=== PATIENT | male | born 1975 | race Caucasian/White ===

== ENCOUNTER 2019-09-24 07:11 | Emergency (ER) | payer MEDICAID ==
[~2019-09-24] VITALS: Ht 183.5 cm; Wt 106.8 kg
--- NOTE | 2019-09-24 07:34 | NUR ---
Patient is here for med refill due to running out meds, denies sucidial ideation, hx of schizoaffective and PTSD and anxiety.
[2019-09-24] MEDS ORDERED: QUET400T PO ×2 (07:51→08:33)
[2019-09-24] MEDS ORDERED: QUET200T PO ×2 (07:51→08:33)
[2019-09-24] MEDS ORDERED: PALI234D IM (07:51)
[2019-09-24] MEDS ORDERED: quetiapine 100mg tablet PO STA (08:11)
[2019-09-24 09:03] VITALS: BP 123/82
== END 2019-09-24 09:01 | disposition home or self-care (01) ==
LOC: ER 07:12
DX: F20.9 Schizophrenia, unspecified (principal); Z76.0 Encounter for issue of repeat prescription; F17.200 Nicotine dependence, unspecified, uncomplicated
CPT/HCPCS: 99283

== ENCOUNTER 2020-05-14 11:28 | Emergency (ER) | payer MEDICARE, MEDICAID ==
[~2020-05-14] VITALS: Ht 182.9 cm; Wt 113.6 kg
[~2020-05-14 11:28] MED LIST: PALI234D IM; QUET200T PO; QUET400T PO
[2020-05-14 12:36] LABS: BASOPHILS # (AUTO) 0.1 X10'3 (0-0.2); BASOPHILS % (AUTO) 0.7 % (0-1); EOSINOPHILS # (AUTO) 0.2 X10'3 (0-0.9); EOSINOPHILS % (AUTO) 2.4 % (0-6); HEMATOCRIT 44.5 % (42.0-52.0); HEMOGLOBIN 15.6 g/dl (14.0-17.9); LYMPHOCYTES # (AUTO) 1.6 X10'3 (1.1-4.8); LYMPHOCYTES % (AUTO) 22.1 % (21-51); MEAN CORPUSCULAR HEMOGLOBIN 31.5 PG (27.0-31.0); MEAN PLATELET VOLUME 6.5 FL (7.4-10.4); MONOCYTES # (AUTO) 0.4 X10'3 (0-0.9); MONOCYTES % (AUTO) 5.1 % (2-12); NEUTROPHILS # (AUTO) 5.1 X10'3 (1.8-7.7); NEUTROPHILS % (AUTO) 69.7 % (42-75); PLATELET COUNT 267 X10'3 (140-440); RED BLOOD COUNT 4.94 X10'6 (4.70-6.10); RED CELL DISTRIBUTION WIDTH 13.1 % (11.5-14.5); WHITE BLOOD COUNT 7.4 X10'3 (4.5-11.0)
[2020-05-14 12:49] LABS: ALANINE AMINOTRANSFERASE 60 U/L (12-78); ALKALINE PHOSPHATASE 95 IU/L (46-116); ANION GAP 12 (8-16); ASPARTATE AMINO TRANSFERASE 23 U/L (10-37); BILIRUBIN,TOTAL 0.4 MG/DL (0.1-1.0); BLOOD UREA NITROGEN 10 MG/DL (7-18); CALCIUM 9.3 MG/DL (8.5-10.1); CHLORIDE 102 MMOL/L (99-107); CREATININE 1.11 MG/DL (0.60-1.10); GLUCOSE 103 MG/DL (70-104); POTASSIUM 3.9 MMOL/L (3.5-5.1); SODIUM 138 MMOL/L (135-145); TOTAL CARBON DIOXIDE 24.2 MMOL/L (24-32); eGFR 72 ML/MIN
[2020-05-14 12:55] LABS: ETHANOL < 0.010 GM/DL (0.0-0.010)
[2020-05-14] MEDS ORDERED: QUET400T PO (13:11)
[2020-05-14] MEDS: quetiapine 100mg tablet PO SCH (13:36)
--- NOTE | 2020-05-14 13:45 | NUR ---
pt is resting in his room. no issues
[2020-05-14 14:18] LABS: URINE AMPHETAMINE SCREEN NEGATIVE (Neg); URINE BARBITUATE SCREEN NEGATIVE (Neg); URINE BENZODIAZEPINES SCREEN NEGATIVE (Neg); URINE CANNABINOID SCREEN NEGATIVE (Neg); URINE COCAINE SCREEN NEGATIVE (Neg); URINE METHADONE SCREEN NEGATIVE (Neg); URINE OPIATE SCREEN NEGATIVE (Neg); URINE PHENCYCLIDINE SCREEN NEGATIVE (Neg)
--- NOTE | 2020-05-14 15:38 | NUR ---
FAXED PACKET [facility]
--- NOTE | 2020-05-14 16:00 | NUR ---
PT IS RESTING IN HIS ROOM
--- NOTE | 2020-05-14 18:43 | NUR ---
The patient is sitting on his bed eating dinner.
--- NOTE | 2020-05-14 19:09 | NUR ---
The patient is speaking to Fredy from [facility].
--- NOTE | 2020-05-14 20:43 | NUR ---
The patient has had his HS meds, and is now lying on his right side for sleep
[2020-05-14] MEDS ORDERED: quetiapine 100mg tablet PO SCH (21:00)
--- NOTE | 2020-05-14 21:43 | NUR ---
Patient sleeping in supine position
--- NOTE | 2020-05-14 22:50 | NUR ---
Patient asleep on his right side.
--- NOTE | 2020-05-15 00:35 | NUR ---
Patient continues to sleep.
--- NOTE | 2020-05-15 03:11 | NUR ---
The patient is sleeping supine. Respirations are even and unlabored. No s/s of distress.
--- NOTE | 2020-05-15 06:01 | NUR ---
Patient awake after having vitals taken
--- NOTE | 2020-05-15 06:25 | NUR ---
paged [facility] for med recommendations
[2020-05-15] MEDS: quetiapine 100mg tablet PO SCH (06:31)
--- NOTE | 2020-05-15 07:30 | NUR ---
pt is walking around
[2020-05-15] MEDS ORDERED: LORazepam 1 MG tablet PO PRN (08:25)
[2020-05-15] MEDS ORDERED: pantoprazole 40mg Tablet.DR PO SCH (08:30)
--- NOTE | 2020-05-15 08:30 | NUR ---
pt is eating breakfast
--- NOTE | 2020-05-15 09:36 | NUR ---
pt is resting in his bed
--- NOTE | 2020-05-15 10:30 | NUR ---
pt is resting
--- NOTE | 2020-05-15 11:28 | NUR ---
pt states the ativan was very helpful
--- NOTE | 2020-05-15 12:00 | NUR ---
pt is eating lunch.
--- NOTE | 2020-05-15 13:00 | NUR ---
pt was told he is going to [facility]
--- NOTE | 2020-05-15 14:06 | NUR ---
pt is sleeping
[2020-05-15 16:31] VITALS: BP 123/91
[2020-05-16] MEDS ORDERED: pantoprazole 40mg Tablet.DR PO SCH (07:30)
[2020-08-08] MEDS ORDERED: PALIPERIDONE PALMITATE IM SCH (08:00)
== END 2020-05-15 17:34 ==
LOC: ER 11:28
DX: R45.851 Suicidal ideations (principal); F20.9 Schizophrenia, unspecified; Z72.89 Other problems related to lifestyle; Z79.899 Other long term (current) drug therapy
CPT/HCPCS: 36415; 80053; 80305; 80320; 85025; 99285

== ENCOUNTER 2021-10-18 08:45 | Emergency (ER) | payer MEDICARE, MEDICAID ==
[~2021-10-18] VITALS: Ht 182.9 cm; Wt 240.0 kg
[~2021-10-18 08:45] MED LIST changes: -QUET200T PO
[2021-10-18 09:06] VITALS: BP 191/108
[2021-10-18] MEDS ORDERED: paliperidone palmitate 156 mg/ml inj.**IM only IM ONE (09:10)
--- NOTE | 2021-10-18 09:16 | NUR ---
ANDRES RUFFIN NOTIFIED OF HTN, AND TACHYCARDIA. ANDRES TO PLACE MED ORDERS. VERNON REPEAT VITALS AFTER MED ADMINISTRATION, PRIOR TO DC.
[2021-10-18] MEDS ORDERED: QUET200T PO (09:17)
--- NOTE | 2021-10-18 11:39 | NUR ---
Called patient regarding visit today to check in and make sure patient was feeling better per Cal CAMPOS request. Patient stated that he was feeling better and that he felt like his blood pressure and heart rate were better. I asked patient to return for us to re-evaluate patients vital signs. Patient stated that because he felt better he didn't think he needed to, at this time. Patient stated that if he felt worse that he would return.
[2021-10-19] MEDS ORDERED: quetiapine 100mg tablet PO ONE (08:00)
== END 2021-10-18 10:36 | disposition home or self-care (01) ==
LOC: ER 08:46
DX: F20.0 Paranoid schizophrenia (principal); R03.0 Elevated blood-pressure reading, without diagnosis of hypertension; R00.0 Tachycardia, unspecified; Z76.0 Encounter for issue of repeat prescription; Z72.89 Other problems related to lifestyle; Z79.899 Other long term (current) drug therapy
CPT/HCPCS: 96372; 99283

== ENCOUNTER 2021-11-15 08:51 | Emergency (ER) | payer MEDICARE, MEDICAID ==
[~2021-11-15] VITALS: Ht 182.9 cm; Wt 109.1 kg
[2021-11-15 08:51] VITALS: BP 148/105
[~2021-11-15 08:51] MED LIST changes: +QUET200T PO
[2021-11-15] MEDS ORDERED: paliperidone palmitate 156 mg/ml inj.**IM only IM ONE (09:00)
[2021-11-15] MEDS ORDERED: QUET200T PO (09:16)
[2021-11-15] MEDS ORDERED: QUET400T54 PO (09:47)
== END 2021-11-15 10:22 | disposition home or self-care (01) ==
LOC: ER 08:52
DX: F20.0 Paranoid schizophrenia (principal); Z72.89 Other problems related to lifestyle; Z79.899 Other long term (current) drug therapy
CPT/HCPCS: 96372; 99283

== ENCOUNTER 2022-03-20 22:14 | Emergency (ER) | payer MEDICARE, MEDICAID ==
[~2022-03-20] VITALS: Ht 182.9 cm; Wt 108.6 kg
[~2022-03-20 22:14] MED LIST changes: +QUET400T54 PO
[2022-03-20 22:15] VITALS: BP 96/67
[2022-03-20 22:45] LABS: BASOPHILS # (AUTO) 0.1 X10'3 (0-0.2); BASOPHILS % (AUTO) 0.5 % (0-1); EOSINOPHILS # (AUTO) 0.3 X10'3 (0-0.9); EOSINOPHILS % (AUTO) 2.4 % (0-6); HEMATOCRIT 42.9 % (42.0-52.0); HEMOGLOBIN 14.9 g/dl (14.0-17.9); LYMPHOCYTES # (AUTO) 1.7 X10'3 (1.1-4.8); LYMPHOCYTES % (AUTO) 15.5 % (21-51); MEAN CORPUSCULAR HEMOGLOBIN 30.6 PG (27.0-31.0); MEAN CORPUSCULAR HGB CONC 34.7 g/dL (33.0-36.5); MEAN PLATELET VOLUME 6.6 FL (7.4-10.4); MONOCYTES % (AUTO) 9.1 % (2-12); NEUTROPHILS # (AUTO) 8.1 X10'3 (1.8-7.7); NEUTROPHILS % (AUTO) 72.5 % (42-75); PLATELET COUNT 225 X10'3 (140-440); RED BLOOD COUNT 4.88 X10'6 (4.70-6.10); RED CELL DISTRIBUTION WIDTH 13.5 % (11.5-14.5); WHITE BLOOD COUNT 11.1 X10'3 (4.5-11.0)
[2022-03-20 23:02] LABS: ALANINE AMINOTRANSFERASE 21 U/L (12-78); ALBUMIN 3.6 G/DL (3.4-5.0); ALBUMIN/GLOBULIN RATIO 0.9 (1.1-1.5); ALKALINE PHOSPHATASE 78 IU/L (46-116); ANION GAP 10 (8-16); ASPARTATE AMINO TRANSFERASE 9 U/L (10-37); BILIRUBIN,TOTAL 0.7 MG/DL (0.1-1.0); BLOOD UREA NITROGEN 10 MG/DL (7-18); BUN/CREATININE RATIO 9.3 (5.4-32.0); CALCIUM 9.5 MG/DL (8.5-10.1); CHLORIDE 104 MMOL/L (99-107); CREATININE 1.08 MG/DL (0.60-1.10); GLUCOSE 142 MG/DL (70-104); POTASSIUM 3.4 MMOL/L (3.5-5.1); SODIUM 138 MMOL/L (135-145); TOTAL CARBON DIOXIDE 23.6 MMOL/L (24-32); TOTAL PROTEIN 7.5 G/DL (6.4-8.2); eGFR 74 ML/MIN
[2022-03-20] MEDS ORDERED: AZIT-83 PO (23:57)
[2022-03-20] MEDS ORDERED: ALBU8.5H17 INH (23:57)
[2022-03-20] MEDS ORDERED: PRED20TA PO (23:57)
[2022-03-21 00:32] LABS: CLARITY,URINE SLIGHTLY CLOUDY (Clear); GLUCOSE, URINE NEGATIVE (Neg); KETONES,URINE TRACE mg/dl (Neg); LEUKOCYTE ESTERASE ,URINE NEGATIVE (Neg); NITRITES, URINE NEGATIVE (Neg); OCCULT BLOOD,URINE MODERATE (Neg); PROTEIN,URINE 30 mg/dl (Neg); UROBILINOGEN,URINE 0.2 E.U/dL (0.2-1.0)
[2022-03-21 00:42] LABS: URINE AMPHETAMINE SCREEN NEGATIVE (Neg); URINE BARBITUATE SCREEN NEGATIVE (Neg); URINE BENZODIAZEPINES SCREEN NEGATIVE (Neg); URINE CANNABINOID SCREEN NEGATIVE (Neg); URINE COCAINE SCREEN NEGATIVE (Neg); URINE METHADONE SCREEN NEGATIVE (Neg); URINE OPIATE SCREEN NEGATIVE (Neg); URINE PHENCYCLIDINE SCREEN NEGATIVE (Neg)
[2022-03-21 00:50] LABS: UA COLLECTION TYPE NON-SPECIFIED
[2022-03-21 00:51] LABS: COLOR,URINE Dark Yellow (Yellow)
[2022-03-21 00:52] LABS: BACTERIA,URINE FEW /HPF (Neg); RBC,URINE 0-2 /HPF (0-2); SQUAMOUS EPITHELIAL CELL,UR FEW /LPF (FEW); WBC,URINE 0-4 /HPF (0-4)
--- NOTE | 2022-03-21 00:52 | NUR ---
CALLED [facility] TO GET PT HOME ETA 10MIN
[2022-03-21 00:53] LABS: CAL OXALATE CRYSTALS 4+ /HPF (NEGATIVE); MUCUS STRANDS MODERATE /LPF (Neg)
== END 2022-03-21 01:02 | disposition home or self-care (01) ==
LOC: ER 22:14
DX: J44.1 Chronic obstructive pulmonary disease with (acute) exacerbation (principal); Z20.822 Contact with and (suspected) exposure to COVID-19; R06.02 Shortness of breath; R00.0 Tachycardia, unspecified; F20.9 Schizophrenia, unspecified; Z72.0 Tobacco use; Z72.89 Other problems related to lifestyle; Z79.2 Long term (current) use of antibiotics; Z79.899 Other long term (current) drug therapy
CPT/HCPCS: 71045; 80053; 80305; 81001; 83605; 83880; 84484; 85025; 87502; 87503; 87635; 93005; 99285; C9803

== ENCOUNTER 2022-07-14 12:03 | Emergency (ER) | payer MEDICARE, MEDICAID ==
[~2022-07-14] VITALS: Ht 182.9 cm; Wt 96.0 kg
[~2022-07-14 12:03] MED LIST changes: +ALBU8.5H17 INH
[2022-07-14 12:15] VITALS: BP 130/88
[2022-07-14] MEDS ORDERED: paliperidone palmitate 156 mg/ml inj.**IM only IM ONE (14:55)
[2022-07-14] MEDS ORDERED: QUET200T PO (15:14)
== END 2022-07-14 15:39 | disposition home or self-care (01) ==
LOC: ER 12:04
DX: F20.9 Schizophrenia, unspecified (principal); Z76.0 Encounter for issue of repeat prescription; F17.200 Nicotine dependence, unspecified, uncomplicated; Z79.899 Other long term (current) drug therapy; Z79.2 Long term (current) use of antibiotics
CPT/HCPCS: 96372; 99283

== ENCOUNTER 2023-10-07 06:26 | Emergency (ER) | payer MEDICARE, MEDICAID ==
[~2023-10-07] VITALS: Ht 182.9 cm; Wt 110.8 kg
[2023-10-07 06:35] VITALS: TEMP 98.4
[2023-10-07 07:26] LABS: BASOPHILS # (AUTO) 0.1 X10'3 (0-0.2); BASOPHILS % (AUTO) 0.7 % (0-1); EOSINOPHILS # (AUTO) 0.1 X10'3 (0-0.9); EOSINOPHILS % (AUTO) 0.8 % (0-6); HEMATOCRIT 47.6 % (42.0-52.0); HEMOGLOBIN 16.5 g/dl (14.0-17.9); LYMPHOCYTES # (AUTO) 1.9 X10'3 (1.1-4.8); LYMPHOCYTES % (AUTO) 17.4 % (21-51); MEAN CORPUSCULAR HEMOGLOBIN 30.9 PG (27.0-31.0); MEAN CORPUSCULAR HGB CONC 34.7 g/dL (33.0-36.5); MEAN PLATELET VOLUME 6.9 FL (7.4-10.4); MONOCYTES # (AUTO) 0.9 X10'3 (0-0.9); NEUTROPHILS # (AUTO) 8.1 X10'3 (1.8-7.7); NEUTROPHILS % (AUTO) 73.1 % (42-75); PLATELET COUNT 219 X10'3 (140-440); RED BLOOD COUNT 5.35 X10'6 (4.70-6.10); RED CELL DISTRIBUTION WIDTH 13.4 % (11.5-14.5)
[2023-10-07 07:36] LABS: ALANINE AMINOTRANSFERASE 35 U/L (12-78); ALBUMIN 4.4 G/DL (3.4-5.0); ALBUMIN/GLOBULIN RATIO 1.2 (1.1-1.5); ALKALINE PHOSPHATASE 110 IU/L (46-116); ANION GAP 13 (8-16); ASPARTATE AMINO TRANSFERASE 36 U/L (10-37); BILIRUBIN,TOTAL 0.6 MG/DL (0.1-1.0); BLOOD UREA NITROGEN 10 MG/DL (7-18); BUN/CREATININE RATIO 10.2 (10.0-20.0); CALCIUM 9.2 MG/DL (8.5-10.1); CHLORIDE 102 MMOL/L (99-107); CREATININE 0.98 MG/DL (0.60-1.10); GLUCOSE 114 MG/DL (70-104); SODIUM 139 MMOL/L (135-145); TOTAL CARBON DIOXIDE 24.2 MMOL/L (24-32); eCRCL 102 ML/MIN; eGFR 82 ML/MIN
[2023-10-07 07:43] LABS: PRO BRAIN NATRIURETIC PEPTIDE 30 PG/ML (0-125)
[2023-10-07] MEDS ORDERED: normal saline 500ml IV soln 500 ML IV ONE (10:50)
[2023-10-07] MEDS ORDERED: hydrOXYzine 25 MG tablet PO ONE (10:50)
[2023-10-07] MEDS ORDERED: cloNIDine 0.1 mg tablet PO ONE (10:50)
[2023-10-07] MEDS ORDERED: labetalol 20mg/4ml (5mg/ml) syringe IV ONE (12:00)
[2023-10-07 12:51] LABS: D-DIMER 0.37 MG/L FEU (0-0.50)
[2023-10-07 14:44] LABS: URINE AMPHETAMINE SCREEN NEGATIVE (Neg); URINE BARBITUATE SCREEN NEGATIVE (Neg); URINE BENZODIAZEPINES SCREEN NEGATIVE (Neg); URINE CANNABINOID SCREEN NEGATIVE (Neg); URINE COCAINE SCREEN NEGATIVE (Neg); URINE METHADONE SCREEN NEGATIVE (Neg); URINE OPIATE SCREEN NEGATIVE (Neg); URINE PHENCYCLIDINE SCREEN NEGATIVE (Neg)
[2023-10-07 14:57] VITALS: BP 129/93; PULSE 91; RESP 18; O2SAT 93
[2023-10-07] MEDS ORDERED: iohexol 350MG/ML 100ml bottle IV ONE (15:27)
[2023-10-07] MEDS ORDERED: LORazepam 1 MG tablet PO ONE (15:45)
== END 2023-10-07 16:07 | disposition home or self-care (01) ==
LOC: ER 06:27
DX: R45.1 Restlessness and agitation (principal); R55 Syncope and collapse; R53.1 Weakness; I10 Essential (primary) hypertension; F41.9 Anxiety disorder, unspecified; R07.89 Other chest pain; Z72.89 Other problems related to lifestyle; Z88.8 Allergy status to other drugs, medicaments and biological substances; Z79.899 Other long term (current) drug therapy
CPT/HCPCS: 36415; 80053; 80305; 83880; 84484; 85025; 85379; 93005; 96374; 99291; J3490; J7030; J7040; Q0177; 99285; Q9967

== ENCOUNTER 2025-03-31 07:08 | Emergency (ER) | payer MEDICAID, MEDICARE ==
[~2025-03-31] VITALS: Ht 182.9 cm; Wt 96.4 kg
[2025-03-31 08:16] LABS: LEUKOCYTE ESTERASE ,URINE NEGATIVE (Neg); NITRITES, URINE NEGATIVE (Neg); OCCULT BLOOD,URINE NEGATIVE (Neg)
--- NOTE | 2025-03-31 08:16 | Physician Documentation ---
History of Present Illness ~ Chief Complaint: Mental Health Eval Stated Complaint: MENTAL HEALTH ISSUES Time Seen by MD: 07:46 Primary Medical Doctor: no primary physician Mode of Arrival: Ambulatory HPI This is a pleasant 50-year-old gentleman with a known history of schizophrenia who presents with a request to see mental health. He states that he is running out of his medication. He does not have a mental health professional here. He has no health insurance. He recently, six months ago, moved here to take care of his mother was dementia. Prior to that he was receiving medications prescribed by a physician in [place]. He is not suicidal, has not homicidal, he is not responding to internal stimuli. He denies any somatic complaints. Medication Reconciliation Allergies: Coded Allergies: divalproex sodium (Unverified Allergy, Unknown, 03/31/25) lurasidone (Unverified Allergy, Unknown, 10/07/23) Scheduled Paliperidone Palmitate (Invega Sustenna), 860 MG IM Q90D, (Reported) Quetiapine Fumarate (Seroquel), 1 TAB PO QAM, (Reported) Quetiapine Fumarate (Seroquel), 400 MG PO HS, (Reported) Quetiapine Fumarate (Quetiapine Fumarate ER), 1 TAB PO HS Quetiapine Fumarate (Seroquel), 1 TAB PO TID Quetiapine Fumarate (Quetiapine Fumarate), 2 TAB PO BID Scheduled PRN Albuterol Sulfate (Proair Hfa), 2 PUFFS INH Q4HPRN PRN for wheezing Past Medical History Past Medical History: Schizophrenia Past Surgical History: no surgical history Alcohol Use: Occasionally Drug Use: none Lives with: Other Lives In: Home Occupation: other Review of Systems ROS 10 point review of systems was performed and unless noted above in HPI is negative for acute process/complaint. Physical Exam Vital Signs: Temperature: 97.2, Source: Temporal, Heart Rate: 94, Respiratory Rate: 16, BP: 157/104, Pulse Oximetry: 96, Weight: 96.400 Physical Exam Physical examination: GENERAL: Awake, alert, oriented, GCS 15, no apparent distress, non-toxic appearing, answers questions, follows commands appropriately. Examined in bed 14. HEENT: Atraumatic, normocephalic, pupils equal, extraocular muscles intact Active gross movements, sclerae anicteric, mucus membranes moist, no stridor. NECK: Midline, no JVD CARDIOVASCULAR: Good skin perfusion without evidence of pallor, mottling. PULMONARY: Nonlabored, symmetric chest rise, no audible wheezing, no accessory muscle use, no respiratory distress, speaking in full sentences. GASTROINTESTINAL: Not distended. NEUROLOGIC: Lucid with normal mental status. Normal facial symmetry. Moves all extremities symmetrically and with purpose. No truncal ataxia. Speech is fluid without evidence of dysarthria or aphasia, no focal deficits appreciated. EXTREMITIES: Acute deformities Skin: warm, dry PSYCHIATRIC: Normal affect, normal insight, normal concentration. Focused exam: [] Does not respond to internal stimuli, not suicidal, not homicidal Progress Results/Orders Results/Orders Orders - SHARDA GASTELUM DO Med Rec (03/31/25 07:46) Close Observation Level (03/31/25 07:46) Covid19 Binax Poc Result Entry (03/31/25 07:46) Regular Diet (03/31/25 Lunch) Waist Fitter (03/31/25 09:03) Completed Orders - SHARDA GASTELUM DO Cbc/Diff (03/31/25 07:46) Urinalysis (03/31/25 07:46) Drug Screen, Urine (03/31/25 07:46) Ethanol (03/31/25 07:46) TSH (03/31/25 07:46) BMP (03/31/25 07:46) Vital Signs 03/31/25 03/31/25 07:11 07:54 Temp 97.2 Pulse 94 Resp 16 B/P (MAP) 157/104 Pulse Ox 96 Laboratory Tests Test 03/31/25 07:55 03/31/25 08:03 Urine Specimen Description Non-specified Urine Color Straw Urine Clarity Clear Urine pH 6.0 Urine Specific [place] 1.010 Urine Protein Negative Urine Glucose (UA) Negative Urine Ketones Negative Urine Occult Blood Negative Urine Nitrite Negative Urine Bilirubin Negative Urine Urobilinogen 0.2 Urine Leukocyte Esterase Negative Volume Urine Centrifuged 10 ml Urine Comment Urine Opiates Screen Negative Urine Methadone Screen Negative Urine Fentanyl Screen Negative Urine Barbiturates Screen Negative Urine Phencyclidine Screen Negative Urine Amphetamines Screen Negative Urine Benzodiazepines Screen Negative Urine Cocaine Screen Negative Urine Cannabinoids Screen Negative Drug Screen Comment SARS-CoV-2 Antigen (Rapid) Negative White Blood Count 8.0 Red Blood Count 5.16 Hemoglobin 15.8 Hematocrit 45.3 Mean Corpuscular Volume 87.9 Mean Corpuscular Hemoglobin 30.6 Mean Corpuscular Hemoglobin Concent 34.8 Red Cell Distribution Width 13.6 Platelet Count 220 Mean Platelet Volume 6.9 L Neutrophils (%) (Auto) 60.2 Lymphocytes (%) (Auto) 26.3 Monocytes (%) (Auto) 7.9 Eosinophils (%) (Auto) 4.8 Basophils (%) (Auto) 0.8 Neutrophils # (Auto) 4.8 Lymphocytes # (Auto) 2.1 Monocytes # (Auto) 0.6 Eosinophils # (Auto) 0.4 Basophils # (Auto) 0.1 CBC Comment Sodium Level 136 Potassium Level 4.5 Chloride Level 103 Carbon Dioxide Level 23.5 L Anion Gap 10 Blood Urea Nitrogen 15 Creatinine 1.05 Estimated GFR/1.73 m2 75 BUN/Creatinine Ratio 14.3 Glucose Level 173 H Calcium Level 9.2 Albumin 3.6 Thyroid Stimulating Hormone (TSH) 1.27 Chemistry Comments Ethyl Alcohol Level < 10 Medical Decision Making Findings Facility Status: ED Holds, [facility] process The plan was discussed with the patient, who demonstrates clear understanding of the plan and is in agreement with the plan unless otherwise noted in the chart. All questions have been answered, all concerns were addressed unless otherwise documented. I was available throughout their ED stay for frequent reassessment and questions. Differential Diagnoses (considered and possible or likely): [Encounter for medication refill, need for psychiatric care, unlikely to represent decompensation of his schizoaffective disorder, unlikely to represent danger to self, grave disability, homicidal ideation] ??Differential Diagnoses (considered and unlikely, not requiring evaluation currently): [Denies any somatic complaints] MDM Data Please see HPI for the following: Independent Historians and external Records Review. Historian: [Patient] Independent Historians: ?[Record review] Medication Management: [Reviewed medication list] Social History and determinants: [Reviewed] Please see the body of the note for the following: Any independent interpretations of ECG, imaging studies. All vitals signs/haemodynamics, ordered tests were independently reviewed and interpreted by myself. Nursing triage complaint and vitals reviewed, additional nursing notes were r eviewed as available and I agree unless otherwise noted or documented in contradiction in the chart Vital Signs: Independently reviewed Labs: Independently interpreted Imaging: Independently interpreted Old Medical Records: Independently reviewed, see HPI for relevant summary and information Pulse Oximetry: [99%] interpreted as [normal on room air] by me Additionally notably showing: [Hemodynamically stable. Unremarkable workup. Normal CBC, normal metabolic panel, drug screen is negative.] Tests considered but not ordered include: [Imaging does not appear to be necessary] Social Determinants of Health Impact: Patient was evaluated in [facility], or [facility] [place] access to healthcare due to below par ratio of patient to medical providers. [] Comorbid Conditions Impacting Present Evaluation and Care/Treatment: [Schizophrenia] Management Discussions with other Healthcare Providers: [Mental health resources and home health care social worker] Treatment and Disposition Medication Management (Given or considered): []. See EMR for details Consideration for Hospitalization/Escalation/Deescalation of Care: Admission for observation has been considered, [however the patient is able to tolerate p.o., their symptoms are controlled, they are able to rely on oral medications, and their chief complaint/diagnosis can be managed on outpatient basis.] ?ED Course:?[Prescription for Seroquel was sent. The gentleman prefers to be discharged and follow-up on home health care social worker on outpatient basis.] ?Shared decision making:?[Patient is hemodynamically stable for discharge home with follow with their primary care provider. [ ] Specific and cautious return precautions provided and discussed with full understanding. Any incidental findings were also discussed and follow up recommendations given. [] All questions answered. Patient/family were able to verbalize back return preca utions. Patient/family agree to plan. Copies of imaging and laboratory studies were provided.] Code status:?FULL Please see the full Electronic Medical Record for full details of nursing documentation, medications list, other records of complete past medical history and conditions, vital signs, laboratory studies, and any radiologic study interpretations by radiologists. Portions of this note were completed using [employer] dictation software and as a result there may exist minor errors in spelling. I have reviewed elements of past family and social history and agree as included in note. Departure Disposition: 01 HOME / SELF CARE / HOMELESS Impression: Primary Impression: Encounter for medication refill Condition: Improved Discharge Instructions: Medical Screening Exam Referrals: NO PRIMARY CARE PROVIDER (PCP) Prescriptions Quetiapine Fumarate (QUETIAPINE FUMARATE) 200 Mg Tablet 2 TAB PO BID for 30 Days, #120 TAB 0 Refills Prov: SHARDA GASTELUM DO 03/31/25 Education Educated: Patient Educated regarding: diagnosis, treatment, prognosis, need for follow up Signature Scribe Signature: No scribe Attestation: This note accurately reflects clinical decisions, work performed by myself, DO ORIANA Buckner NICHOLAS M DO Mar 31, 2025 08:16
[2025-03-31 08:18] LABS: MEAN PLATELET VOLUME 6.9 FL (7.4-10.4); RED CELL DISTRIBUTION WIDTH 13.6 % (11.5-14.5)
[2025-03-31 08:22] LABS: UA COLLECTION TYPE NON-SPECIFIED
[2025-03-31 08:29] LABS: URINE AMPHETAMINE SCREEN NEGATIVE (Neg); URINE BARBITUATE SCREEN NEGATIVE (Neg); URINE BENZODIAZEPINES SCREEN NEGATIVE (Neg); URINE CANNABINOID SCREEN NEGATIVE (Neg); URINE COCAINE SCREEN NEGATIVE (Neg); URINE METHADONE SCREEN NEGATIVE (Neg); URINE OPIATE SCREEN NEGATIVE (Neg); URINE PHENCYCLIDINE SCREEN NEGATIVE (Neg)
[2025-03-31 08:42] LABS: CREATININE 1.05 MG/DL (0.60-1.10); ETHANOL < 10 MG/DL (<10); TOTAL CARBON DIOXIDE 23.5 MMOL/L (24-32); eCRCL 93 ML/MIN; eGFR 75 ML/MIN
[2025-03-31] MEDS ORDERED: QUET200T31 PO (10:22)
[2025-03-31 11:07] VITALS: BP 157/104; PULSE 94; RESP 16; TEMP 97.2; O2SAT 96
== END 2025-03-31 11:10 | disposition home or self-care (01) ==
LOC: ER 07:09
DX: Z00.8 Encounter for other general examination (principal); Z76.0 Encounter for issue of repeat prescription; F20.9 Schizophrenia, unspecified; Z20.822 Contact with and (suspected) exposure to COVID-19; Z79.899 Other long term (current) drug therapy
CPT/HCPCS: 36415; 80048; 80305; 80320; 81003; 84443; 85025; 87811; 99283

== ENCOUNTER 2025-05-01 07:17 | Emergency (ER) | payer MEDICAID ==
[~2025-05-01] VITALS: Ht 195.6 cm; Wt 110.5 kg
[~2025-05-01 07:17] MED LIST changes: +QUET200T31 PO
[2025-05-01 07:27] VITALS: TEMP 97.6
[2025-05-01] MEDS ORDERED: PALI6TAB PO (07:40)
--- NOTE | 2025-05-01 07:43 | Physician Documentation ---
HPI ~ General Chief Complaint: Medication Request Stated Complaint: MED REQ Time Seen by MD: 07:37 Primary Medical Doctor: no primary physician History of Present Illness HPI Comments This is a 50-year-old gentleman with a known history of schizophrenia presents with a request for medication refill. I have seen him last month and prescribe him Seroquel 200 mg two tabs b.i.d.. This time he is almost out and he requires refill. He also requests refill for paliperidone. He denies any other symptoms. No concern for tobacco, alcohol or illicit substances use Medication Reconciliation Allergies: Coded Allergies: divalproex sodium (Unverified Allergy, Unknown, 05/01/25) lurasidone (Unverified Allergy, Unknown, 05/01/25) Scheduled Paliperidone Palmitate (Invega Sustenna), 860 MG IM Q90D, (Reported) Quetiapine Fumarate (Seroquel), 1 TAB PO QAM, (Reported) Quetiapine Fumarate (Seroquel), 400 MG PO HS, (Reported) Quetiapine Fumarate (Quetiapine Fumarate ER), 1 TAB PO HS Quetiapine Fumarate (Seroquel), 1 TAB PO TID Quetiapine Fumarate (Quetiapine Fumarate), 2 TAB PO BID Scheduled PRN Albuterol Sulfate (Proair Hfa), 2 PUFFS INH Q4HPRN PRN for wheezing Past Medical History Past Medical History: Schizophrenia Past Surgical History: no surgical history Alcohol Use: Occasionally Drug Use: none Lives with: Other Lives In: Home Occupation: other Review of Systems ROS 10 point review of systems was performed and unless noted above in HPI is negative for acute process/complaint. Physical Exam Physical Exam Vital Signs: Temperature: 97.6, Source: Temporal, Heart Rate: 89, Respiratory Rate: 18, BP: 166/117, Pulse Oximetry: 98, Weight: 110.450 Physical Exam Physical examination: GENERAL: Awake, alert, oriented, GCS 15, no apparent distress, non-toxic appearing, answers questions, follows commands appropriately. Examined in bed 19. HEENT: Atraumatic, normocephalic, pupils equal, extraocular muscles intact Active gross movements, sclerae anicteric, mucus membranes moist, no stridor. NECK: Midline, no JVD CARDIOVASCULAR: Good skin perfusion without evidence of pallor, mottling. PULMONARY: Nonlabored, symmetric chest rise, no audible wheezing, no accessory muscle use, no respiratory distress, speaking in full sentences. GASTROINTESTINAL: Not distended. NEUROLOGIC: Lucid with normal mental status. Normal facial symmetry. Moves all extremities symmetrically and with purpose. No truncal ataxia. Speech is fluid without evidence of dysarthria or aphasia, no focal deficits appreciated. EXTREMITIES: Acute deformities Skin: warm, dry PSYCHIATRIC: Normal affect, normal insight, normal concentration. Focused exam: [] Progress Results/Orders Results/Orders Vital Signs 05/01/25 07:27 Temp 97.6 Pulse 89 Resp 18 B/P (MAP) 166/117 Pulse Ox 98 Medical Decision Making Findings Facility Status: ED Holds, [facility] process The plan was discussed with the patient, who demonstrates clear understanding of the plan and is in agreement with the plan unless otherwise noted in the chart. All questions have been answered, all concerns were addressed unless otherwise documented. I was available throughout their ED stay for frequent reassessment and qu estions. Differential Diagnoses (considered and possible or likely): [Medication refill, stable schizophrenia, unlikely to represent medication noncompliance, psychotic break] ??Differential Diagnoses (considered and unlikely, not requiring evaluation currently): [Denies any other symptoms] MDM Data Please see HPI for the following: Independent Historians and external Records Review. Historian: [Patient] Independent Historians: ?[Record review] Medication Management: [Reviewed medication list] Social History and determinants: [Reviewed] Please see the body of the note for the following: Any independent interpretations of ECG, imaging studies. All vitals signs/haemodynamics, ordered tests were independently reviewed and interpreted by myself. Nursing triage complaint and vitals reviewed, additional nursing notes were reviewed as available and I agree unless otherwise noted or documented in contradiction in the chart Vital Signs: Independently reviewed Labs: Independently interpreted Imaging: Independently interpreted Old Medical Records: Independently reviewed, see HPI for relevant summary and information Pulse Oximetry: [100%] interpreted as [normal on room air] by me Additionally notably showing: [Hemodynamically stable] Tests considered but not ordered include: [Hematologic workup and imaging has been considered but does not appear to be necessary given clinical nature of diagnosis] Social Determinants of Health Impact: Patient was evaluated in [facility], [facility] [place] access to healthcare due to below par ratio of patient to medical providers. [] Comorbid Conditions Impacting Present Evaluation and Care/Treatment: [Schizophrenia] Management Discussions with other Healthcare Providers: [None] Treatment and Disposition Medication Management (Given or considered): []. See EMR for details Consideration for Hospitalization/Escalation/Deescalation of Care: Admission for observation has been considered, [however the patient is able to tolerate p.o., their symptoms are controlled, they are able to rely on oral medications, and their chief complaint/diagnosis can be managed on outpatient basis.] ?ED Course:?[Medication refill was sent. No clinical deterioration during the emergency department stay. Pleasant and cooperative.] ?Shared decision making:?[Patient is hemodynamically stable for discharge home with follow with their primary care provider. [ ] Specific and cautious return precautions provided and discussed with full understanding. Any incidental findings were also discussed and follow up recommendations given. [] All questions answered. Patient/family were able to verbalize back return precautions. Patient/family agree to plan. Copies of imaging and laboratory studies were provided.] Code status:?FULL Please see the full Electronic Medical Record for full details of nursing documentation, medications list, other records of complete past medical history and conditions, vital signs, laboratory studies, and any radiologic study interpretations by radiologists. Portions of this note were completed using [employer] dictation software and as a result there may exist minor errors in spelling. I have reviewed elements of past family and social history and agree as included in note. Departure Disposition: HOME / SELF CARE / HOMELESS Impression: Primary Impression: Encounter for medication refill Condition: Stable Discharge Instructions: Medicine Refill at the Emergency Department Referrals: NO PRIMARY CARE PROVIDER (PCP) Prescriptions Paliperidone (Invega) 6 Mg Tab.er.24 1 TAB PO QAM for 30 Days, #30 TAB 0 Refills Prov: SHARDA GASTELUM DO 05/01/25 Quetiapine Fumarate (QUETIAPINE FUMARATE) 200 Mg Tablet 2 TAB PO BID for 30 Days, #120 TAB 0 Refills Prov: SHARDA GASTELUM DO 05/01/25 Education Educated: Patient Educated regarding: diagnosis, treatment, prognosis, need for follow up Signature Scribe Signature: No scribe Attestation: This note accurately reflects clinical decisions, work performed by myself, DO ORIANA Buckner NICHOLAS M DO May 01, 2025 07:43
[2025-05-01 07:49] VITALS: BP 166/117; PULSE 89; RESP 18; O2SAT 98
== END 2025-05-01 07:51 | disposition home or self-care (01) ==
LOC: ER 07:17
DX: Z00.8 Encounter for other general examination (principal); Z76.0 Encounter for issue of repeat prescription; F20.9 Schizophrenia, unspecified
CPT/HCPCS: 99281

== ENCOUNTER 2025-05-23 08:37 | Emergency (ER) | payer MEDICARE, MEDICAID ==
[~2025-05-23] VITALS: Ht 182.9 cm; Wt 115.5 kg
[~2025-05-23 08:37] MED LIST changes: +PALI6TAB PO
[2025-05-23 08:42] VITALS: TEMP 96.7
[2025-05-23] MEDS ORDERED: PROP40TA72 PO (09:13)
[2025-05-23] MEDS ORDERED: QUET-1 PO (09:13)
--- NOTE | 2025-05-23 09:13 | Physician Documentation ---
HPI ~ General Chief Complaint: Medication Request Stated Complaint: MED REQUEST Time Seen by MD: 09:03 Primary Medical Doctor: in the process - newly with medical (awaiting partnership) History of Present Illness HPI Comments 50-year-old male presents to the ED requesting medication refills on both Seroquel and propranolol. Patient states he takes 400 mg of Seroquel twice daily and 40 mg of propranolol twice daily. Denies any other medical complaints. Medication Reconciliation Allergies: Coded Allergies: divalproex sodium (Unverified Allergy, Unknown, 05/23/25) lurasidone (Unverified Allergy, Unknown, 05/23/25) Scheduled Paliperidone (Invega), 1 TAB PO QAM Paliperidone Palmitate (Invega Sustenna), 860 MG IM Q90D, (Reported) Propranolol Hcl* (Inderal*), 1 TAB PO Q12H Quetiapine Fumarate (Seroquel), 1 TAB PO QAM, (Reported) Quetiapine Fumarate (Seroquel), 400 MG PO HS, (Reported) Quetiapine Fumarate (Quetiapine Fumarate ER), 1 TAB PO HS Quetiapine Fumarate (Seroquel), 1 TAB PO TID Quetiapine Fumarate (Quetiapine Fumarate), 2 TAB PO BID Quetiapine Fumarate* (Seroquel*), 4 TAB PO BID Scheduled PRN Albuterol Sulfate (Proair Hfa), 2 PUFFS INH Q4HPRN PRN for wheezing Past Medical History Past Medical History: Schizophrenia Past Surgical History: no surgical history Alcohol Use: Occasionally Drug Use: none Lives with: Other Lives In: Home Occupation: other Review of Systems All Other Systems at this time: Reviewed and Negative ROS As stated above in the HPI, otherwise all systems are reviewed and negative. Physical Exam Physical Exam Vital Signs: Temperature: 96.7, Source: Oral, Heart Rate: 97, Respiratory Rate: 18, BP: 147/104, Pulse Oximetry: 97, Weight: 115.500 Physical Exam General: Alert, no apparent distress. Respiratory: Lungs clear, no respiratory distress. Cardiovascular: Regular rate and rhythm, no murmurs. Gastrointestinal: Soft, nontender, nondistended. Bowels sounds present. Neurologic: Oriented x4. Psychiatric: Normal mood and affect. Skin: Normal color, warm and dry. No edema, no ecchymosis. Progress Results/Orders Results/Orders Vital Signs 05/23/25 05/23/25 08:42 09:38 Temp 96.7 Pulse 97 85 Resp 18 16 B/P (MAP) 147/104 144/78 Pulse Ox 97 98 Medical Decision Making Findings Medications refilled without difficulty patient will follow up for worsening concerns Differential Dx:Considerations: Include: Adverse circumstances, Economic, Psychosocial, Medical services unavail., Medication refill, Medication non- compliance, Other Departure Disposition: HOME / SELF CARE / HOMELESS Impression: Primary Impression: General medical exam Condition: Stable Discharge Instructions: Medicine Refill at the Emergency Department Referrals: NO PRIMARY CARE PROVIDER (PCP) Prescriptions Quetiapine Fumarate (QUETIAPINE FUMARATE) 200 Mg Tablet 2 TAB PO BID for 30 Days, #120 TAB 0 Refills Prov: MANISH PHILIPPE NP 05/23/25 Propranolol Hcl* (Inderal*) 40 Mg Tablet 1 TAB PO Q12H for 30 Days, #60 TAB Prov: MANISH PHILIPPE NP 05/23/25 Quetiapine Fumarate* (Seroquel*) 100 Mg Tablet 4 TAB PO BID for 30 Days, #30 TAB Prov: MANISH PHILIPPE NP 05/23/25 Education Educated: Patient Educated regarding: diagnosis Signature Scribe Signature: e Attestation: Scribed for Manish Philippe Senior Process Analyst by Manish Kelly NP . 05/23/25 09:13 MANISH PHILIPPE NP May 23, 2025 09:13
[2025-05-23 09:38] VITALS: BP 144/78; PULSE 85; RESP 16; O2SAT 98
[2025-05-23] MEDS ORDERED: QUET200T31 PO (10:24)
== END 2025-05-23 09:39 | disposition home or self-care (01) ==
LOC: ER 08:37
DX: Z00.8 Encounter for other general examination (principal); Z76.0 Encounter for issue of repeat prescription; F20.9 Schizophrenia, unspecified
CPT/HCPCS: 99281